=== PATIENT | female | born 1980 | race Caucasian/White ===

== ENCOUNTER 2025-05-29 13:46 | Emergency (ER) | payer BC, SELFPAY ==
--- NOTE | 2025-05-29 13:48 | ED.NAVMDI ---
HPI - Nausea/Vomiting/Diarrhea General Chief complaint: Nausea/Vomiting/Diarrhea Stated complaint: nausea/cold hot flashes/dizzy Time Seen by Provider: 05/29/25 13:48 Source: patient Mode of arrival: ambulatory Limitations: no limitations History of Present Illness HPI Narrative: Janis is a 45-year-old female patient presenting to the clinic today with complaints of dizziness, weakness, nausea, vomiting, and hot and cold flashes. States she has had some dizziness off and on for the past week. Other symptoms have been going on for 2 days. Does have some nasal drainage and congestion but this is not abnormal for her. States that it feels as though the room is spinning as well she is unsteady on her feet. Was at work when she had this an episode and got real hot and vomited twice. No known fevers, sore throat, or body aches. Denies any visual changes, headache, chest pain, or shortness of breath. Denies any urinary symptoms or current abdominal pain. LMP- irregular- on control patch- denies concern for . Related Data Home Medications ?Medication ?Instructions ?Recorded ?Confirmed ?Last Taken ?Type norelgestromin 150 mcg-e.estradiol patch 05/29/25 Unknown History 35 mcg/24 hr weekly transderm patch (Zafemy) rosuvastatin 10 mg tablet mg 05/29/25 Unknown History topiramate 25 mg tablet mg 05/29/25 Unknown History Allergies Allergy/AdvReac Type Severity Reaction Status Date / Time No Known Allergies Allergy Verified 05/29/25 14:00 Review of Systems Review of Systems: Pertinent positives per HPI. Patient denies any fever, rash, headache, visual changes, dizziness, cough, shortness of breath, chest pain, palpitations, constipation, abdominal pain, or any urinary issues. PMFSH Comments At the time of my signature, I reviewed and agree with the nursing past medical, surgical, social, and family history. There is no relevant family history pertinent to the patient complaint. Exam Narrative: General: Well-developed, well nourished, in no apparent distress Head: Normocephalic, atraumatic Eyes: Pupils equally round and reactive to light bilaterally, EOM intact, sclera and conjunctive clear, no discharge, lids normal Ears: TMs intact and clear, ear canals clear, no drainage, grossly hearing normal. Nose: Nares patent, no discharge, no inflammation, no sinus tenderness. Mouth: Oral pharynx without lesions or masses, good dentition, MMM. Neck: Supple, trachea midline, no enlargement of anterior or posterior cervical nodes, no thyroid masses or goiter palpable. Cardio: Regular rate and rhythm, s1 and s2 normal, no murmur appreciated. Resp: Clear to auscultation bilaterally, no rhonchi, rales, wheezing or rubs Course Course Emergency Course: Portions of this record may have been created with voice recognition software. Level of Care: Express Care Visit Vital Signs Vital signs: Vital Signs Temperature 36.1 C L 05/29/25 13:54 Pulse Rate 78 05/29/25 13:54 Respiratory Rate 16 05/29/25 13:54 Blood Pressure 128/80 05/29/25 13:54 Pulse Oximetry 100 05/29/25 13:54 Oxygen Delivery Room Air 05/29/25 13:54 Temperature 36.1 C L 05/29/25 13:54 Pulse Rate 89 05/29/25 14:20 Respiratory Rate 16 05/29/25 13:54 Blood Pressure 127/80 05/29/25 14:20 Pulse Oximetry 100 05/29/25 13:54 Oxygen Delivery Room Air 05/29/25 13:54 Vital signs reviewed MDM - Nausea/Vomiting/Diarrhea MDM Narrative Medical decision making narrative: At the time of visit patient is resting comfortably on the exam table. Patient appears to be nontoxic. Complaints of dizziness, weakness, nausea, vomiting, and hot and cold flashes. States she has had some dizziness off and on for the past week. Does have some nasal drainage and congestion but this is not abnormal for her. States that it feels as though the room is spinning as well she is unsteady on her feet. Was at work when she had this episode and got real hot and vomited twice. No fevers, sore throat, or body aches. Denies any visual changes, headache, chest pain, or shortness of breath. Denies any urinary symptoms or current abdominal pain. On exam patient has dizziness with position changes, negative neuro exam, does appear to be slightly pale. Reporting nausea and dizziness. Vital signs stable. EKG, bedside glucose, urinalysis, influenza, COVID, and orthostatic blood pressures ordered. Meclizine 25 mg p.o. and Zofran 8 mg p.o. ordered EKG: EKG shows normal sinus rhythm with heart rate 71 beats per minute without ST elevation, depression, or T-wave inversion. Labs: Blood sugar was 114 in the clinic today, urinalysis shows trace of ketones and blood-no leukocytes or nitrates. Influenza A testing was positive. COVID testing was negative. Orthostatic blood pressures: Lying blood pressure was 121/66 with a heart rate of 78, sitting blood pressure was 122/67 with a heart rate of 80, standing blood pressure was 127/80 with a heart rate of 89 Plan: Patient has influenza A. Neuro exam is normal in the clinic today. All testing within normal limits other than positive influenza A test. Prescription for meclizine and Zofran was sent to the pharmacy. Work note was given. Supportive measures were discussed with the patient and they voiced understanding discharge instructions and agrees to treatment plan. Return precautions reviewed Differential Diagnosis Differential diagnosis: Likely traveler's diarrhea, food poisoning, gastroenteritis, clostridium difficile infection, drug-induced nausea and vomiting, dehydration and other (Vertigo, BPPV, Meniere's disease, heat exhaustion, CVA, viral syndrome, influenza, COVID) Lab Data Labs: Lab Results 05/29/25 05/29/25 05/29/25 Range/Units 14:12 14:25 14:30 POC Capillary Glucose 114 H (65-105) mg/dl POC Urine Color Janis POC Urine Clarity Cloudy POC Urine pH 5.5 POC Ur Specif [place] 1.030 POC Urine Protein Negative (Negative) POC Ur Glucose (UA) Negative (Negative) POC Urine Ketones Trace (Negative) POC Urine Blood 1+ (Negative) POC Urine Nitrite Negative (Negative) POC Urine Bilirubin Negative (Negative) POC Urine Urobilinogen 0.2 POC U Leukocyte Esteras Negative (Negative) POC Influenza A Ag Positive (Negative) POC Influenza B Ag Negative (Negative) POC SARS CoV-2 Ag Negative (Negative) ECG Data EKG #1: Attestation: I personally reviewed and interpreted this ECG as follows: ECG completion date: 05/29/25 ECG completion time: 14:13 Prior ECG tracings: not available for review Interpretation: EKG shows sinus rhythm with heart rate of 71 beats per minute. No ST elevation, depression, or T-wave inversion noted. Oval is 186 milliseconds, QRS durations 110 milliseconds, QT-QTC is 384-407 milliseconds, P-R-T axis is -60 [phone] Discharge Plan Discharge Clinical Impression: Influenza A, Vertigo Patient Disposition: Home Condition: Stable Instructions: Antibiotic Form, Influenza (ED), Dizziness (ED) Additional Instructions: Meclizine for dizziness and Zofran for nausea was given in the clinic today Take prescription medications only as prescribed-meclizine and Zofran May take DayQuil/NyQuil for cold/flu symptoms-this medication has Tylenol in it Increase fluids and stay well hydrated May take Tylenol or motrin as directed on bottle for pain/fever May use Flonase 1 spray in each nare daily May take OTC antihistamines such as Zyrtec or Claritin daily as directed on bottle May apply Vicks vapor rub to chest to open sinuses Sinus rinses for congestion Cepacol spray, cough drops, throat lozenges, warm tea with honey/lemon, gargle salt water to soothe throat BRAT diet for diarrhea Clear liquids x 24 hours then advance as tolerated for nausea/vomiting Go to the ED if you develop a worsening in your condition- high fever not controlled by Tylenol or Motrin, dehydration, weakness, lethargy, shortness of breath, or chest pain. Follow up with your PCP in 3-5 days if symptoms persist. Patient Language: Arabic Prescriptions: New meclizine 25 mg tablet 25 mg PO TID PRN (Reason: dizziness) 7 Days Qty: 21 0RF ondansetron 8 mg tablet,disintegrating 8 mg PO Q8H PRN (Reason: nausea and vomiting) 3 Days Qty: 10 0RF No Action topiramate 25 mg tablet norelgestromin-ethin.estradiol [Zafemy] 150-35 mcg/24 hr patch weekly rosuvastatin 10 mg tablet Follow-up/Referrals: Antonella Blackmon RN [Primary Care Provider] - Stand Alone Forms: Work/School Release IP Time of Disposition: 14:54 Quality NIHSS Nursing Documentation ED NIHSS nursing documentation: reviewed/agree
[2025-05-29 13:54] VITALS: BP 128/80; PULSE 78; RESP 16; TEMP 36.1; O2SAT 100
--- OUTSIDE RECORDS SUMMARY | 2025-05-29 13:55 | XMS_ITS | Clinical Summary ---
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 The patient does have a small subcentimeter fascial defect at the umbilicus. This is not where her discomfort is. Along the low midline she has a marked widening of the rectus muscles but no sign of any fascial defect consistent with a diastasis. We have gone over the difference between a true hernia and just a diastasis. The only way to restore function likely limit the pain would be to bring the abdominal wall muscles back together. We have discussed the results are mixed when trying to do this like we normally would due to fix a true hernia. Typically I will refer people to Plastic surgery to do some kind of anterior plication of the fascia with an abdominal plasty. This would likely include the small umbilical defect as well. I am going to make a referral to Plastic surgery to evaluate to see their thoughts. She is in understanding of the plan. Continue to wear the abdominal binder for comfort. Any weight loss that she can accomplish will also help to limit the discomfort. Abdominal wall abscess 07/08/2022 Overview (07/08/2022): Added automatically from request for surgery [id number] Ventral hernia with obstruction but no gangrene 01/08/2022 Overview (01/08/2022): Added automatically from request for surgery [id number] Assessment & Plan (06/03/2022 2:02 PM CDT): Concern for small superficial skin infection at the exit site. Oral antibiotics for this, along with wound care as discussed. Will also give some pain medication as this perc drain disrupts her sleep due to pain/discomfort. Discussed follow up when output from the drain is less than 10ml per day, and possibly the need to rescan prior to removal of the drain. Patient is understanding. 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 Never 07/19/2023 Q2: How many drinks containi ng alcohol do you have on a typical day when you are drinking? Patient does not drink Q3: How often do you have si x or more drinks on one occasion? Never 07/19/2023 Personal Safety Answer Date Recorded Have you ever been in or are you currently in a harmful physical or emotional relationship or is someone making you feel afraid or unsafe? 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 Gender Identity Not on file Sexual Orientation Not on file Obstetrics History Last Filed Vital Signs Vital Sign Reading Time Taken Comments Blood Pressure 130/86 09/16/2023 10:18 AM CIVIL STRUCTURAL DESIGNER Pulse 98 09/16/2023 10:18 AM CIVIL STRUCTURAL DESIGNER Temperature 37.1 C (98.7 F) 09/16/2023 10:18 AM CIVIL STRUCTURAL DESIGNER Respiratory Rate 18 07/29/2023 7:25 AM CDT Oxygen Saturation 97% 07/29/2023 7:25 AM CDT Inhaled Oxygen Concentration - - Weight 88.5 kg (195 lb) 09/16/2023 10:18 AM CIVIL STRUCTURAL DESIGNER Height 152.4 cm (5') 09/16/2023 10:18 AM CIVIL STRUCTURAL DESIGNER Body Mass Index 38.08 09/16/2023 10:18 AM CIVIL STRUCTURAL DESIGNER Plan of Treatment Health Maintenance Due Date Last Done Comments Cervical Cancer Screening 1981 Depression Screening 1981 Hepatitis C Screening 1981 Varicella Vaccines (1 of 2 - 13+ 2-dose series) 1994 Hepatitis B Screening 1999 Regular Well Visit/Exam 18-64 1999 HPV Vaccines (1 - 3-dose SCD M series) 01/03/2008 Covid-19 Vaccine ( - 2023-2 5 season) 2024 04/03/2021, 03/06/2021 Influenza Vaccine (#1) 2025 08/09/2014 Breast Cancer Screening-Mammogram 07/25/2025 07/25/2024, 07/25/2024 DTaP/Tdap/Td Vaccine (2 - Td or Tdap) 05/03/2029 05/03/2019, 06/01/1995 Pneumococcal vaccine <65 Aged Out No longer eligible based on patient's age to complete this topic Medical Devices Implanted Type Area Adjutant General Device Identifier Shelf Expiration Date Model / Serial / Lot [employer]/C R Bard [id number] Monofilament Soft Lightweight Low Profile Square - [id number] Implanted:Qty: 1 on 07/25/2023 by Siva Pagan MD at [facility] Mesh Abdomen [employer] Bard [id number] 02/11/2027 [id number] / / [id number] [employer]/C R Bard Ventralight St Sepra 8x6in Uncoated Monofilament Lightweight [id number] - [id number] Implanted:Qty: 1 on 02/11/2022 by James Valencia MD at [facility] N/A: Abdomen [employer]/C R Bard 06/13/2023 [id number] / / [id number] Insurance [facility] CHO[facility] PLUS [facility] ACCESS CHOICE [address] [place], [place] Advance Directives For more information, please contact: [phone] * Full Code (Latest Code Status on File) Date Activated Date Inactivated Comments 07/25/2023 9:03 PM 07/29/2023 3:31 PM Care Teams Customer Solutions Coordinator Relationship Specialty Start Date End Date Antonella Blackmon NP [address] [place] [address] [address] [facility] [address] [place] [address] PCP - General Nurse Practitioner 01/17/25
--- OUTSIDE RECORDS SUMMARY | 2025-05-29 13:55 | XMS_ITS | Encounter Summary ---
Author Organization [facility] Healthcare Address [address] [place] [address] Care Team Providers Care Power And Recovery Superintendent Name Role Phone Luis Enrique Woods MD Primary Care Provider [phone] Louise Johnson MD Primary Care Provider [phone] Yoly Bowling MD Primary Care Provider Antonella Blackmon NP Primary Care Provider Encounter Details Date Type Department Care Team (Late st Contact Info) Description 05/20/2022 Telephone [facility] [address] [place] [address] Tessie Denise, RT Social History Tobacco Use Types Packs/Day Years Used Date Smoking Tobacco: Never Smokeless Tobacco: Never Alcohol Use Standard Drinks/Week Comments No 0 (1 standard drink = 0.6 oz pur e alcohol) AUDIT-C Answer Date Recorded Q1: How often do you have a drink containing alc ohol? Never 02/11/2022 Average Number of Drinks Not on file 022 Q3: How often do you have si x or more drinks on one occasion? 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 Gender Identity Not on file Sexual Orientation Not on file documented as of this encounter Plan of Treatment Not on file documented as of this encounter Visit Diagnoses Not on filedocumented in this encounter Care Teams Power And Recovery Superintendent Relationship Specialty Start Date End Date Luis Enrique Woods MD [address] [place] [address] PCP - General 12/10/21 09/22/22 Louise Johnson MD [address] [place] [address] PCP - General Family Medicine 09/23/22 04/19/23 Yoly Bowling MD [address] [place] [address] [place] [address] PCP - General Family Medicine 04/20/23 01/16/25 Antonella Blackmon NP [address] [place] [address] [address] [place] [id number] PCP - General Nurse Practitioner 01/17/25 documented as of this encounter
--- OUTSIDE RECORDS SUMMARY | 2025-05-29 13:55 | XMS_ITS | Encounter Summary ---
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 Gender Identity Not on file Sexual Orientation Not on file documented as of this encounter Plan of Treatment Not on file documented as of this encounter Visit Diagnoses Not on filedocumented in this encounter Care Teams Director Energy Relationship Specialty Start Date End Date Luis Enrique Woods MD [address] [place] [address] PCP - General 12/10/21 09/22/22 Louise Johnson MD [address] [place] [address] [place] [address] PCP - General Family Medicine 09/23/22 04/19/23 Yoly Bowling MD [address] [place] [address] [place] [address] PCP - General Family Medicine 04/20/23 01/16/25 Antonella Blackmon, SU [address] [place] [address] [address] [place] [address] PCP - General Nurse Practitioner 01/17/25 documented as of this encounter
--- OUTSIDE RECORDS SUMMARY | 2025-05-29 13:55 | XMS_ITS | Clinical Summary ---
Author Organization [facility] Address [address] [place] [address] Phone Care Team Providers Care Steel Melter Name Role Phone Jaylon Jenkins MD Unavailable Kavitha Sosa WATCH TRAIN ASSEMBLER, ASSISTANT WRESTLING COACH Primary Care Provider + Allergies Active Allergy Reactions Criticality Noted Date Comments Prednisone Hives Medium 11/14/2019 If takes with z-pac gets rash but can take each alone without problems Other reaction(s): Urticaria If takes with z-pac gets rash but can take each alone without problems If takes with z-pac gets rash but can take each alone without problems Other reaction(s): Urticaria If takes with z-pac gets rash but can take each alone without problems Medications Lo Loestrin Fe 1 MG-10 MCG / 10 MCG Tablet Take 1 Tablet by mouth daily. 02/16/2024 Active methocarbamol (ROBAXIN) 750 MG TabletIndications :Lumbar degenerative disc disease Take 1 Tablet by mouth 4 times daily as needed for Other. 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 Morbid obesity with BMI of 40.0-44.9, adult 10/19 Encounters Date Type Department Care Team Description 02/28/2025 9:00 AM CDT - 02/28/2025 11:59 PM CDT Hospital Encounter [facility]iology [facility] [address] [place] [address] Kimo Nicolas MD Discharge Disposition: Discharged to home or Selfcare 02/28/2025 Travel from Last 3 Months Immunizations Immunization Administration Dates Next Due Influenza, Seasonal, Injectable, Undefined 08/09 TD VACCINE 06/01/1995 TDAP Vaccine 05/03/2019 Family History Medical History Relation Name Comments Anxiety disorder Half-Sister a Arrhythmia Half-Sister a Hypertension Half-Sister a Cancer Mother Vaginal Diabetes Mother Hypertension Mother Relation Name Status Comments Daughter 1 Alive Daughter 2 Alive Daughter 3 Alive Father Alive Half-Sister a Alive Mother Alive Social History Tobacco Use Types Packs/Day Years Used Date Smoking Tobacco: Never Smokeless Tobacco: Never Tobacco Cessation:Counseling Given: Yes Alcohol Use Standard Drinks/Week Comments No 0 (1 standard drink = 0.6 oz pur e alcohol) [facility] Utilities Answer Date Recorded In the past 12 months has e electric, gas, oil, or water company threatened to shut off services in your home? Patient declined 03/13/2024 Social Connection and Isolation Panel Answer Date Recorded In a typical week, how many times do you talk on the phone with family, friends, or neighbors? Patient declined 03/13/2024 How often do you get togethe r with friends or relatives? Patient declined 03/13/2024 How often do you attend zoroastrian or restoration serv ices? Patient declined 03/13/2024 Do you belong to any clubs o r organizations such as zoroastrian groups, unions, fraternal or athletic groups, or school groups? Patient declined 03/13/2024 How often do you attend meet ings of the clubs or organizations you belong to? Patient declined 03/13/2024 Are you , , di vorced, , never , or living with a partner? Patient declined 03/13/2024 AUDIT-C Answer Date Recorded Q1: How often do you have a drink containing alc ohol? Patient declined 03/13/2024 Q2: How many drinks containi ng alcohol do you have on a typical day when you are drinking? Patient declined 03/13/2024 Q3: How often do you have si x or more drinks on one occasion? Patient declined 03/13/2024 Overall Financial Resource Strain (CARDIA) Answe r Date Recorded How hard is it for you to pa y for the very basics like food, housing, medical care, and heating? Patient declined 03/13/2024 [place] [facility] - Occupational Stress Questionnaire Answer Date Recorded Do you feel stress - tense, restless, nervous, or anxious, or unable to sleep at night because your mind is troubled all the time - these days? Patient declined 03/13/2024 Exercise Vital Sign Answer Date Recorde d On average, how many days pe r week do you engage in moderate to strenuous exercise (like a brisk walk)? 7 days 03/13/2024 On average, how many minutes do you engage in exercise at this level? 90 min 03/13/2024 Hunger Vital Sign Answer Date Recorded Within the past 12 months, y ou worried that your food would run out before you got the money to buy more. Patient declined Within the past 12 months, t he food you bought just didn't last and you didn't have money to get more. Patient declined PRAPARE - Transportation Answer Date Re corded In the past 12 months, has l ack of transportation kept you from medical appointments or from getting medications? Patient declined 03/13/2024 In the past 12 months, has l ack of transportation kept you from meetings, work, or from getting things needed for daily living? Patient declined 03/13/2024 Housing Stability Vital Sign Answer Carson e Recorded In the last 12 months, was t here a time when you were not able to pay the mortgage or rent on time? Patient declined 03/13/20 24 Number of Places Lived in the Last Year Not on f ile 03/13/2024 In the last 12 months, was t here a time when you did not have a steady place to sleep or slept in a retirement (including now)? Patient declined 03/13/2024 Comments No Sex and Gender Information Value Date Recorded Sex Assigned at Not on file Legal Sex Female 7:38 PM CDT Gender Identity Not on file Sexual Orientation Not on file Last Filed Vital Signs Vital Sign Reading Time Taken Comments Blood Pressure 114/64 03/19/2024 8:27 AM CDT Pulse 84 03/19/2024 8:27 AM CDT Temperature 36.4 C (97.5 F) 03/19/2024 8:27 AM CDT Respiratory Rate 14 03/19/2024 8:27 AM CDT Oxygen Saturation 100% 03/19/2024 8:27 AM CDT Inhaled Oxygen Concentration - - Weight 102.1 kg (225 lb 1.6 oz) 03/19/2024 8:27 AM CDT Height 152.4 cm (5') 03/19/2024 8:27 AM CDT Body Mass Index 43.96 03/19/2024 8:27 AM CDT Plan of Treatment Health Maintenance Due Date Last Done Comments Hepatitis C Virus (HCV) Screening 1980 Hepatitis B Immunization (1 of 3 - 19+ 3-dose series) 01/03/2000 Pap Smear 2002 Human Papillomavirus (HPV) Immunization (1 - 3-dose SCDM series) 01/03/2008 Cervical Cancer Screening (CCS) 2011 HPV/Cotest 2011 SARS-COV-2 Immunization ( season) 2024 04/03/2021, 03/06/2021 Influenza Immunization (#1) 2025 08/09/2014 Mammogram 07/25/2025 07/25/2024 Td Immunization Every 10 Yea rs (Adults With 1 Tdap) 05/03/2029 05/03/2019, 06/01/1995 Respiratory Syncytial Virus (RSV) Immunization (Adult) (1 - 1-dose 75+ series) 01/03/2056 DTaP/Tdap/Td Immunization Discontinued 2018, 06/01/1995 TdaP Immunization Discontinued 05/03/2019 Discussion re Starting/Frequency of Mammograms Completed 07/25/2024 Meningococcal Immunization (ACWY) Aged Out No longer eligible based on patient's age to complete this topic Pneumococcal Immunization Combined Aged Out No longer eligible based on patient's age to complete this topic Rotavirus Immunization Aged Out No lo nger eligible based on patient's age to complete this topic Procedures Procedure Name Priority Date/Time Associated Diagnosis Comments ADULT TRANS THORACIC ECHO 2D COMPLT W CONT Routine 02/28/2025 10:06 AM CDT Chest pain, unspecified type Dyspnea, unspecified type Personal history of COVID-19 Palpitations ISABEL SCREENING BILATERAL DIGITAL W CAD W DELGADO Routine 07/25/2024 3:30 PM CDT Visit for screening mammogram from Last 3 Months or Most Recently Relevant to Health Maintenance Results * ADULT TRANS THORACIC ECHO 2D COMPLT W CONT (02/28/2025 10:06 AM CDT) AV Peak Grad mmHg 7.4 mmHg RESULTING AGENCY Mean Aortic Valve Gradient (MAVG) 4 mmHg RESULTING AGENCY LV end praveen diam cm 4.7 cm RESULTING AGENCY LV end sys diam cm 3 cm RESULTING AGENCY Aortic Root Diam cm 2.6 cm RESULTING AGENCY LA vol index ml/m2 22 ml/m2 RESULTING AGENCY LVOT Peak Steven m/sec 0.998 m/sec RESULTING AGENCY AV Peak Steven m/sec 1.36 m/sec RESULTING AGENCY MV Mean Grad mmHg 2 mmHg RESULTING AGENCY MVA by PHT cm2 3.79 cm2 RESUL TING AGENCY E/A Ratio 1.06 RESULTING AGENCY TR Steven m/sec 1.39 m/sec RESULTI NG AGENCY E/E' 12.7 RESULTING AGENCY AV Area (VTI) cm2 2.49 cm2 RESULTING AGENCY SEPTUM DIASTOLIC CM 0.8 cm RESULTING AGENCY PW DIASTOLIC CM 0.9 cm RESU LTING AGENCY LA VOLUME 43.4 ml RESULTING AGENCY LV EF(estimated)% 60 RESULTING AGENCY Anatomical Region Laterality Modality CARDIO N/A Ultrasound Narrative 03/02/2025 1:24 PM CDT Transthoracic Echocardiography Report (TTE) Patient name SHELL Worthy Ritu 1980 Patient ID (UPI) [id number] Indications: Chest pain and Palpitations. Study Date02/28/2025 Technical quality: Limited visualization Limitation Reason: Dense Tissue Type of Study: TTE procedure: Adult Trans Thoracic Echo 2D Complete. Priority:RoutineHR: 83 bpmBP: 126/63 mmHg Contrast Medium: Lumason. Amount - 3 ml Conclusions Summary - Normal LV size, diastolic and systolic function. Calculated LVEF 60% - Normal right ventricular cavity size and normal systolic function. - No hemodynamically significant valvular abnormalities Findings Mitral Valve The mitral valve is normal. There is no evidence of mitral stenosis. There is no significant mitral regurgitation. Aortic Valve The aortic valve is trileaflet with normal leaflet excursion. There is no evidence of aortic valve stenosis. There is no significant aortic valve insufficiency. Tricuspid Valve The tricuspid valve is normal. There is no evidence of tricuspid stenosis. There is no significant tricuspid regurgitation. There is no evidence of pulmonary hypertension. Pulmonic Valve Not well visualized, no evidence by Doppler interrogation for significant stenosis or regurgitation. Left Atrium The left atrium size is normal. Left Ventricle - Normal LV size, diastolic and systolic function. Calculated LVEF 60% Right Atrium The right atrium size is normal. Right Ventricle - Normal right ventricular cavity size and normal systolic function. Pericardial Effusion The pericardium is normal. There is no pericardial effusion visualized. Miscellaneous Aortic root and proximal ascending aorta are normal in size. Atrial septum appears intact. IVC is normal in size and respiratory response. Aortic arch appears normal. Valves Mitral Valve Area (PHT): 3.79 cm^2 Area (continuity): 1.89 cm^2 Peak E-Wave: 1.01 m/s Mean Velocity: 0.72 m/s Peak A-Wave: 0.95 m/s Mean Gradient: 2 mmHg Peak Gradient: 4.08 mmHg Deceleration Time: 198 msec P1/2t: 58 msec Tissue Doppler E' Velocity: 0.09 m/s E/E':12.7 E/A Ratio: 1.06 E/Lat E': 12.7 E/Med E':11.2 Aortic Valve Area (continuity): 2.49 cm^2 Mean Velocity: 0.94 m/s Area (VTI):2.49 cm^2 Mean Gradient: 4 mmHg Peak Velocity: 1.36 m/s AV VTI: 23.7 cm Peak Gradient: 7.4 mmHg Tricuspid Valve Peak E-Wave: 0.65 m/s Peak Gradient: 1.72 mmHg TR Velocity: 1.39 m/s TR Gradient: 7.73 mmHg Pulmonic Valve Peak Velocity: . m/s Mean Velocity: 0.71 m/s Peak Gradient: 4 mmHg Mean Gradient: 2 mmHg LVOT Peak Velocity: 0.99 m/s Mean Velocity: 0.66 m/s Peak Gradient: 4 mmHg Mean Gradient: 2 mmHg LVOT Diameter: 2 cm LVOT VTI: 18.8 cm Stroke Volume: 59 ml Stroke Volume Index: 30.1 ml/m^2 Structures Left Ventricle Diastolic Dimension: 4.7 cm Systolic Dimension: 3 cm Septum Diastolic: 0.8 cm Septum Systolic: 1.2 cm PW Diastolic: 0.9 cm PW Systolic: 1.4 cm Diastolic Length: 31.6 cm Systolic Length: 17.8 cm EF Calculated: 60.09% CI: 2.5 l/min*m^2 CO: 4.9 l/min RWT: 0.38 LV EDV: 107 ml FS: 36.17 % LV EDV Index: 55 m^2 LV Length: 7.86 cm LV ESV: 42.7 ml LVOT Diameter: 2 cm LV ESV Index: 22 m^2 Right Ventricle RVOT (PLAX) diameter:4 cm Tissue Doppler RV S': 15.3 TAPSE: 2.98 cm Left Atrium LA Systolic Pressure: 17.9 mmHg LA Area: 16.4 cm^2 LA Volume: 43.4 ml LA Index: 22ml/m^2 Right Atrium RA Area: 15.6 cm^2 Great Vessels Aorta Ascending Aorta: 3 cm Aorta Root:2.6 cm Ascending Aorta Index:1.53 cm/m^2 Demographics Age 45 Gender Female Race Height 60 in. Weight 225.12 lbs. BMI (BSA) 43.96 kg/m^2 (1.96 m^2) Preparation Room Manager Juvencio Thomas Referring Physician Piero Physician Chaka Guevara Procedure Note Paola Null MD - 03/02/2025 Transthoracic Echocardiography Report (TTE) Patient name SHELL Worthy Ritu 1980 Patient ID (UPI) [id number] Indications: Chest pain and Palpitations. Study Date02/28/2025 Technical quality: Limited visualization Limitation Reason: Dense Tissue Type of Study: TTE procedure: Adult Trans Thoracic Echo 2D Complete. Priority:RoutineHR: 83 bpmBP: 126/63 mmHg Contrast Medium: Lumason. Amount - 3 ml Conclusions Summary - Normal LV size, diastolic and systolic function. Calculated LVEF 60% - Normal right ventricular cavity size and normal systolic function. - No hemodynamically significant valvular abnormalities Findings Mitral Valve The mitral valve is normal. There is no evidence of mitral stenosis. There is no significant mitral regurgitation. Aortic Valve The aortic valve is trileaflet with normal leaflet excursion. There is no evidence of aortic valve stenosis. There is no significant aortic valve insufficiency. Tricuspid Valve The tricuspid valve is normal. There is no evidence of tricuspid stenosis. There is no significant tricuspid regurgitation. There is no evidence of pulmonary hypertension. Pulmonic Valve Not well visualized, no evidence by Doppler interrogation for significant stenosis or regurgitation. Left Atrium The left atrium size is normal. Left Ventricle - Normal LV size, diastolic and systolic function. Calculated LVEF 60% Right Atrium The right atrium size is normal. Right Ventricle - Normal right ventricular cavity size and normal systolic function. Pericardial Effusion The pericardium is normal. There is no pericardial effusion visualized. Miscellaneous Aortic root and proximal ascending aorta are normal in size. Atrial septum appears intact. IVC is normal in size and respiratory response. Aortic arch appears normal. Valves Mitral Valve Area (PHT): 3.79 cm^2 Area (continuity): 1.89 cm^2 Peak E-Wave: 1.01 m/s Mean Velocity: 0.72 m/s Peak A-Wave: 0.95 m/s Mean Gradient: 2 mmHg Peak Gradient: 4.08 mmHg Deceleration Time: 198 msec P1/2t: 58 msec Tissue Doppler E' Velocity: 0.09 m/s E/E':12.7 E/A Ratio: 1.06 E/Lat E': 12.7 E/Med E':11.2 Aortic Valve Area (continuity): 2.49 cm^2 Mean Velocity: 0.94 m/s Area (VTI):2.49 cm^2 Mean Gradient: 4 mmHg Peak Velocity: 1.36 m/s AV VTI: 23.7 cm Peak Gradient: 7.4 mmHg Tricuspid Valve Peak E-Wave: 0.65 m/s Peak Gradient: 1.72 mmHg TR Velocity: 1.39 m/s TR Gradient: 7.73 mmHg Pulmonic Valve Peak Velocity: . m/s Mean Velocity: 0.71 m/s Peak Gradient: 4 mmHg Mean Gradient: 2 mmHg LVOT Peak Velocity: 0.99 m/s Mean Velocity: 0.66 m/s Peak Gradient: 4 mmHg Mean Gradient: 2 mmHg LVOT Diameter: 2 cm LVOT VTI: 18.8 cm Stroke Volume: 59 ml Stroke Volume Index: 30.1 ml/m^2 Structures Left Ventricle Diastolic Dimension: 4.7 cm Systolic Dimension: 3 cm Septum Diastolic: 0.8 cm Septum Systolic: 1.2 cm PW Diastolic: 0.9 cm PW Systolic: 1.4 cm Diastolic Length: 31.6 cm Systolic Length: 17.8 cm EF Calculated: 60.09% CI: 2.5 l/min*m^2 CO: 4.9 l/min RWT: 0.38 LV EDV: 107 ml FS: 36.17 % LV EDV Index: 55 m^2 LV Length: 7.86 cm LV ESV: 42.7 ml LVOT Diameter: 2 cm LV ESV Index: 22 m^2 Right Ventricle RVOT (PLAX) diameter:4 cm Tissue Doppler RV S': 15.3 TAPSE: 2.98 cm Left Atrium LA Systolic Pressure: 17.9 mmHg LA Area: 16.4 cm^2 LA Volume: 43.4 ml LA Index: 22ml/m^2 Right Atrium RA Area: 15.6 cm^2 Great Vessels Aorta Ascending Aorta: 3 cm Aorta Root:2.6 cm Ascending Aorta Index:1.53 cm/m^2 Demographics Age 45 Gender Female Race Height 60 in. Weight 225.12 lbs. BMI (BSA) 43.96 kg/m^2 (1.96 m^2) Preparation Room Manager Juvencio Muller Interpreting Thomas Referring Physician Piero Physician Chaka Guevara us Kimo Nioclas MD IMG ECHO ORDERABLES Edited Resul t - Final * ISABEL SCREENING BILATERAL DIGITAL W CAD W DELGADO (07/25/2024 3:30 PM CDT) Anatomical Region Laterality Modality breast Bilateral Mammography 07/25/2024 3:15 PM CDT Narrative 07/25/2024 4:47 PM CDT - ISABEL SCREENING BILATERAL DIGITAL W CAD W DELGADO BILATERAL DIGITAL SCREENING MAMMOGRAM 3D/2D WITH CAD WITH MEDIOLATERAL OBLIQUE CRANIOCAUDAL: 07/25/2024 The study was acquired using digital technology and interpreted from soft copy. Current study was also evaluated with [employer] (QEEP)D version 7.2. 2D digital mammographic views, as well as 3D digital tomosynthesis were performed in the CC and MLO projections. CLINICAL: Baseline screening. Patient has no complaints today. Patient did report possible left breast lump a week ago but was no longer present when doing her self breast exam last night. Technologist continued with screening and patient advised to consult physician if palpable area returns. No personal history of breast cancer. Maternal grandmother had breast cancer. COMPARISONS: No prior exams were available for comparison. BREAST TISSUE:There are scattered areas of fibroglandular density. FINDINGS: No significant masses, calcifications, or other findings are seen in either breast. IMPRESSION: NEGATIVE There is no mammographic evidence of malignancy. A 1 year screening mammogram is recommended. A letter will be sent to the patient with these results. The patient will be entered into a reminder system with a target due date of 1 year for her next screening exam. Electronically signed by: Pal [email or web address]:07/25/2024 16:24:09 Vmware Architect(s): RT Zenobia(Abigail)(M), [facility] letter sent: Normal Exam Reading location: [facility] Mammogram BI-RADS: Category 1: Negative Procedure Note Pal Mahan MD - 07/25/2024 - ISABEL SCREENING BILATERAL DIGITAL W CAD W [place] BILATERAL DIGITAL SCREENING MAMMOGRAM 3D/2D WITH CAD WITH MEDIOLATERAL OBLIQUE CRANIOCAUDAL: 07/25/2024 The study was acquired using digital technology and interpreted from soft copy. Current study was also evaluated with ICAD version 7.2. 2D digital mammographic views, as well as 3D digital tomosynthesis were performed in the CC and MLO projections. CLINICAL: Baseline screening. Patient has no complaints today. Patient did report possible left breast lump a week ago but was no longer present when doing her self breast exam last night. Technologist continued with screening and patient advised to consult physician if palpable area returns. No personal history of breast cancer. Maternal grandmother had breast cancer. COMPARISONS: No prior exams were available for comparison. BREAST TISSUE:There are scattered areas of fibroglandular density. FINDINGS: No significant masses, calcifications, or other findings are seen in either breast. IMPRESSION: NEGATIVE There is no mammographic evidence of malignancy. A 1 year screening mammogram is recommended. A letter will be sent to the patient with these results. The patient will be entered into a reminder system with a target due date of 1 year for her next screening exam. Electronically signed by: Pal [email or web address]:07/25/2024 16:24:09 Vmware Architect(s): RT Zenobia(R)(M), [facility] letter sent: Normal Exam Reading location: [facility] Mammogram BI-RADS: Category 1: Negative Luis Alberto Tyler MD IM MAMMO ORDERABLES F inal Result from Last 3 Months or Most Recently Relevant to Health Maintenance Insurance [facility] Advance Directives * Full Code (Latest Code Status on File) Date Activated Date Inactivated Comments 11/16/2019 10:26 PM 11/19/2019 2:50 PM CPR-Full Harish atment: FULL ARREST: Attempt Resuscitation/CPR wit intubation and mechanical ventilation. PRE-ARREST: Use entire range of life support measures to stabilize the patient. Care Teams Steel Melter Relationship Specialty Start Date End Date Kavitha Sosa, WATCH TRAIN ASSEMBLER, ASSISTANT WRESTLING COACH [address] [place] [address] PCP - General Advanced Practice Nurse 02/20/24 Jaylon Jenkins MD [address] [facility] [address] [place] [address] Consulting Physician Colon and Rectal Surgery 12/24/22
--- NOTE | 2025-05-29 14:06 | ECG_ITS ---
Test Date: 2025-05-29 14:10:54 Measurements Intervals [place] Rate: 71 P: -16 NC: 186 QRS: 76 QRSD: 110 T: 35 QT: 384 QTc: 419 Interpretive Statements SINUS RHYTHM INCOMPLETE RIGHT BUNDLE BRANCH BLOCK DELAYED PRECORDIAL R/S TRANSITION BASELINE ARTIFACT- I, II, III, AVR, AVL, AVF BORDERLINE ECG No previous ECG available for comparison Electronically Signed On 05-29-2025 14:36:01 CDT by Roberto Khoury D.O.
[2025-05-29 14:14] VITALS: BP 121/66; PULSE 87
[2025-05-29 14:17] VITALS: BP 122/67; PULSE 80
[2025-05-29 14:20] VITALS: BP 127/80; PULSE 89
[2025-05-29 14:31] LABS: EDUAAPPEAR Cloudy; EDUABILI Negative (Negative); EDUABLOOD 1+ (Negative); EDUACOLOR1 Amber; EDUAGLUCOSE Negative (Negative); EDUAKETONE Trace (Negative); EDUALEUKO Negative (Negative); EDUANITRATE Negative (Negative); EDUAPH 5.5; EDUAPROTEIN Negative (Negative); EDUASPGRAVITY 1.030; EDUAUROBILI 0.2
[2025-05-29 14:33] LABS: EDCOVIDSCREEN Negative (Negative); EDINFLUASCREEN Positive (Negative); EDINFLUBSCREEN Negative (Negative)
[2025-05-29] MEDS: MECLIZINE HCL 25 MG TABLET PO (14:34)
[2025-05-29] MEDS: ONDANSETRON HCL ODT 4 MG TABLET 8 MG SUBLINGUAL (14:34)
== END 2025-05-29 15:00 | disposition home or self-care (01) ==
PROVIDERS: Emergency Provider Nurse Practitioner Family
DX: J10.1 Influenza due to other identified influenza virus with other respiratory manifestations (principal); R42 Dizziness and giddiness; Z20.822 Contact with and (suspected) exposure to COVID-19; E78.00 Pure hypercholesterolemia, unspecified
CPT/HCPCS: 81003; 82948; 87426; 87804; 93005; 99203; A9270; G0463